=== PATIENT | female | born 1990 | race Caucasian/White ===

== ENCOUNTER 2016-12-05 14:43 | Emergency (ER) | payer MEDICAID ==
--- NOTE | 2016-12-05 15:11 | Emergency Department Record ---
History of Present Illness - General Chief Complaint: Abdominal Pain Stated Complaint: ABDOMINAL PAIN Time Seen by Provider: 12/05/16 15:08 Source: Patient Mode of Arrival: Ambulatory Limitations: No limitations - History of Present Illness Initial Comments: The patient is here due to chronic abdominal pain. She has had pain off and on for many months and then about 3 weeks ago was diagnosed with a bleeding ulcer in [place] and had an EGD where her ulcer was injected with Epi. She was doing well with only mild pain until about 4 days ago when her upper abdominal pain returned. The pain is aching and stabbing in the LUQ mainly. She has had chronic nausea and vomiting and did vomit 3 times today but no blood was present. She also denies any blood in her stools. She called her GI doctor who told her to go to the ER so she decided to come to [facility] even though all her visits, tests and surgeries were in [place]. Onset/Timin -: Days(s) Location: Periumbilical, LUQ Severity: Moderate Quality: Aching, Burning, Cramping, Fullness Consistency: Constant - Related Data LMP Date: 11/21/16 Home Medications Medication Instructions Recorded Confirmed Last Taken Famotidine [Pepcid] 20 mg PO DAILY 12/05/16 12/05/16 1 Day Ago ~12/04/16 Magnesium Hydroxide/Al Hydrox 30 ml PO TID 12/05/16 12/05/16 1 Day Ago [Maalox] ~12/04/16 Ondansetron [Zofran Odt] 4 mg PO Q8H 12/05/16 12/05/16 1 Day Ago ~12/04/16 Pantoprazole Sodium [Protonix] 40 mg PO BID 12/05/16 12/05/16 1 Day Ago ~12/04/16 Sucralfate [Carafate] 1 gm PO QID 12/05/16 12/05/16 1 Day Ago ~12/04/16 Previous Rx's Medication Instructions Recorded Ondansetron [Zofran Odt] 4 mg SL .Q4-6H PRN #12 tabnomi 12/05/16 Pantoprazole Sodium [Protonix] 40 mg PO BID #28 tab 12/05/16 Allergies Allergy/AdvReac Type Severity Reaction Status Date / Time hyoscyamine [From Levsin] Allergy ITCHING Verified 12/05/16 15:08 metoclopramide [From Reglan] Allergy HIVES Verified 12/05/16 15:08 promethazine [From Phenergan] Allergy HIVES Verified 12/05/16 15:08 cat scan dye Allergy DIFFICULTY Uncoded 12/05/16 15:08 BREATHING Travel Screening - Travel/Exposure Within Last 30 Days Have you traveled within the last 30 days?: No - Travel/Exposure Within Last Year Have you traveled outside the [place] in the last year?: No - Additonal Travel Details Have you been exposed to anyone with a communicable illness?: No - Travel Symptoms Symptom Screening: None Review of Systems Constitutional: Denies: Chills, Fever Eyes: Denies: Eye discharge ENT: Denies: Congestion Respiratory: Denies: Cough, Dyspnea Past Medical History - SOCIAL HISTORY Smoking Status: Current every day smoker Alcohol Use: None Drug Use: None - RESPIRATORY Hx Asthma: Yes Hx Bronchitis: Yes - CARDIOVASCULAR Hx Irregular Heartbeat: Yes (needs cardiology follow up) - NEURO Hx Neuro Disorders: No - GI Hx Abdominal Pain: Yes Hx GI Bleed: Yes Hx Reflux: Yes Hx Ulcer: Yes - Hx Genitourinary Disorders: No - ENDOCRINE Hx Diabetes: No Hx Thyroid Disease: No - MUSCULOSKELETAL Hx Musculoskeletal Disorders: No - PSYCH Hx Psych Problems: No - HEMATOLOGY/ONCOLOGY Hx Anemia: Yes Family Medical History Any Significant Family History?: Yes Hx Cancer: Grandparents Hx Heart Disease: Mother Physical Exam - General General Appearance: Alert, Oriented x3, Cooperative, No acute distress - Head Head exam: Atraumatic, Normocephalic, Normal inspection - Eye Eye exam: Normal appearance, PERRL - ENT Throat exam: Normal inspection - Neck Neck exam: Normal inspection, Full ROM. negative: Tenderness - Respiratory Respiratory exam: Normal lung sounds bilaterally. negative: Respiratory distress - Cardiovascular Cardiovascular Exam: Regular rate, Normal rhythm, Normal heart sounds - GI/Abdominal GI/Abdominal exam: Soft, Normal bowel sounds, Tenderness (There is mild LUQ tenderness.). negative: Distended, Rebound, Rigid - Extremities Extremities exam: Normal inspection, Full ROM, Normal capillary refill. negative: Tenderness - Neurological Neurological exam: Alert, Normal gait. negative: Abnormal gait, Motor sensory deficit Course Vital Signs 12/05/16 14:55 Temperature 98.5 F Pulse Rate 82 Respiratory 16 Rate Blood Pressure 115/85 Pulse Ox 100 - Reevaluation(s) Reevaluation #1: The patient is doing better. She is resting more comfortably and is waiting on her CT results. 12/05/16 16:48 Reevaluation #2: The patient is resting comfortably. Her abdomen is very soft with only very minimal tenderness in the LUQ which is typical for her chronic pain syndrome. I explained to her that her test results here are all normal and that we recommend that she see her PCP and GI Specialist TRINI. Presently her pain is typical for her chronic pain syndrome that she has been experiencing off and on over the last 4-5 months. The patient has had no vomiting here in the ER and has kept all of her pain medicines down. 12/05/16 17:54 12/05/16 17:57 Medical Decision Making - Data Complexity MDM Data: Labs Ordered and/or Reviewed, X-Ray Ordered and/or Reviewed - Lab Data Result diagrams: 12/05/16 15:25 12/05/16 15:25 - Radiology Data Radiology results: Report reviewed (Abd CT: Normal per Rad.) Disposition Disposition: Discharge Clinical Impression: Chronic abdominal pain Disposition: Home, Self-Care Condition: (2) Stable Instructions: Chronic Abdominal Pain (ED) Additional Instructions: Please continue your regular medicines and please see your PCP and GI Specialist TRINI. Take the Tylenol # 3 if needed. Please return to the ER for any worsening pain, fever, or vomiting. Prescriptions: Ondansetron [Zofran Odt] 4 mg SL .Q4-6H PRN #12 tab.rapdis PRN Reason: Nausea Pantoprazole Sodium [Protonix] 40 mg PO BID #28 tab.dr Forms: Patient Portal Access Time of Disposition: 17:59 Quality - Quality Measures Quality Measures: N/A - Blood Pressure Screening View Details: Yes Does Patient Have Any of the Following: No Blood Pressure Classification: Pre-Hypertensive BP Reading Systolic Measurement: 115 Diastolic Measurement: 85 Screening for High Blood Pressure: < Pre-Hypertensive BP, F/U Documented > [ [id number]] Pre-Hypertensive Follow-up Interventions: Referral to alternative/primary care provider.
[2016-12-05] MEDS ORDERED: 0.9 % SODIUM CHLORIDE 1,000 ML BAG IV ONE (15:15)
[2016-12-05] MEDS ORDERED: ONDANSETRON HCL IV 4 MG/2 ML VIAL IV ONE (15:15)
[2016-12-05] MEDS ORDERED: MAGNESIUM HYDROXIDE/AL HYDROX 30 ML, LIDOCAINE VISC 2% 200 MG PO ONE ×2 (15:16)
[2016-12-05 15:31] LABS: BASO % 0.4 % (0-6); EOS % 1.8 % (0-6); GRAN % 70.3 % (47-80); HEMATOCRIT 38.7 % (35.0-47.0); HEMOGLOBIN 12.5 gm/dl (11.6-16.0); LYMPH % 19.4 % (16-45); MEAN CELL VOLUME 87.8 fl (81-97); MEAN CORPUSCULAR HEMOGLOBIN 28.3 pg (27-33); MEAN CORPUSCULAR HGB CONC 32.3 g/dl (32-36); MEAN PLATELET VOLUME 11.2 fl (7.4-10.4); MONO % 8.1 % (0-9); PLATELET COUNT 306 K/uL (130-400); RED BLOOD COUNT 4.41 M/uL (3.80-5.40); RED CELL DISTRIBUTION WIDTH 13.7 % (11.5-14.5); WHITE BLOOD COUNT W/O DIFF 7.3 K/uL (4.2-12.2)
[2016-12-05 15:45] LABS: ALBUMIN 4.6 gm/dL (3.5-5.0); ALKALINE PHOSPHATASE 62 U/L (38-126); ALT/SGPT 32 U/L (9-52); AST/SGOT 17 U/L (14-36); BILIRUBIN,TOTAL 0.33 mg/dL (0.2-1.3); BLOOD UREA NITROGEN 11 mg/dL (7-17); CREATININE 0.7 mg/dL (0.52-1.04); EST GLOMERULAR FILTRATION RATE > 60 ml/min; GLUCOSE,RANDOM 98 mg/dL (70-110); LIPASE 49 U/L (23-300); TOTAL PROTEIN 7.8 gm/dL (6.3-8.2)
[2016-12-05] MEDS ORDERED: SUCRALFATE 1 G/10 ML UD PO ONE (17:30)
[2016-12-05] MEDS ORDERED: ACETAMINOPHEN W/ CODEINE 300MG/30MG TABLET PO ONE ×2 (17:53→17:59)
--- NOTE | 2016-12-06 21:02 | CT SCAN REPORT ---
EXAM: CT SCAN ABDOMEN/PELVIS WO CONTRAST HISTORY: ONE MONTH GENERALIZED ABDOMINAL PAIN. HISTORY OF CHOLECYSTECTOMY AND C -SECTION. COMPARISON: None. TECHNIQUE: Contiguous axial images from the lung bases through the symphysis pubis were obtained without IV contrast. FINDINGS: The lung bases are clear. Evaluation of the solid abdominal visceral organs is compromised due to lack of IV contrast. The liver and spleen are unremarkable. The kidneys are symmetric in size without intrarenal calculi, hydronephrosis, or perinephric fat stranding. The adrenals and pancreas are normal. The gallbladder is absent. Visualized loops of small and large bowel are of normal caliber with moderate fecal material throughout the colon. No bowel wall thickening. Normal appendix. The abdominal aorta is minimally calcified and of normal caliber. The uterus is present. No pelvic mass. The abdominal wall is unremarkable. No lytic or blastic lesion. IMPRESSION: NO ACUTE PROCESS OF THE ABDOMEN OR PELVIS. NORMAL APPENDIX. JOB NUMBER: [id number] MTDD
== END 2016-12-05 18:30 | disposition home or self-care (01) ==
LOC: ER 14:43
DX: G89.29 Other chronic pain (principal); R10.12 Left upper quadrant pain; R11.2 Nausea with vomiting, unspecified
CPT/HCPCS: 99284 ×2; 96374; 96361; 83690; 85025; 80076; 80048; 81025; 74176; J2405; J7030